=== PATIENT | male | born 1990 | race African-American/Black ===

== ENCOUNTER 2021-04-26 22:29 | Emergency (ER) | payer SELFPAY ==
[2021-04-26 23:28] LABS: INR-International Normal Ratio 3.1; PTT 132.1 sec (22.9-36.1); Prothrombin Time 32.7 sec (12.0-14.7)
[2021-04-26 23:41] LABS: ALT (SGPT) 399 U/L (8-55); AST (SGOT) 504 U/L (5-34); Albumin 1.6 g/dL (3.5-5.0); Alkaline Phosphatase 53 U/L (40-110); Anion Gap 23 mmol/L (10-20); BUN (Urea Nitrogen) 11 mg/dL (8.9-20.6); Bilirubin, Total 0.3 mg/dL (0.2-1.2); Calc. Creatinine Clearance 0 mL/min (70-130); Calcium 6.3 mg/dL (7.8-10.44); Carbon Dioxide 16 mmol/L (22-29); Chloride 109 mmol/L (98-107); Globulin 1.5 g/dL (2.4-3.5); Protein, Total 3.1 g/dL (6.0-8.3); Sodium 145 mmol/L (136-145)
[2021-04-27 00:11] LABS: Glucose 310 mg/dL (70-105); Potassium 2.8 mmol/L (3.5-5.1)
== END 2021-04-26 22:55 | disposition short-term general hospital (02) ==
LOC: EDBD 22:29 → BURERS 22:29
DX: I46.9 Cardiac arrest, cause unspecified (principal); S32.402A Unspecified fracture of left acetabulum, initial encounter for closed fracture; S32.592A Other specified fracture of left pubis, initial encounter for closed fracture; S32.591A Other specified fracture of right pubis, initial encounter for closed fracture; S02.609A Fracture of mandible, unspecified, initial encounter for closed fracture; S52.92XA Unspecified fracture of left forearm, initial encounter for closed fracture; S72.91XA Unspecified fracture of right femur, initial encounter for closed fracture; V47.5XXA Car driver injured in collision with fixed or stationary object in traffic accident, initial encounter
CPT/HCPCS: 36415; 36430; 36680; 71045; 72170; 80053; 85025; 85610; 85730; 86850; 86900; 86901; G0390; P9016